=== PATIENT | male | born 1970 | race Caucasian/White ===

== ENCOUNTER 2017-02-16 08:47 | Inpatient (IN) | payer MEDICAID, OTHER ==
[~2017-02-16] VITALS: Ht 172.7 cm; Wt 133.0 kg
[2017-02-16] MEDS ORDERED: LIDOCAINE 2%/EPI MPF (SDV) 20 ML VIAL INJ ONE (10:00)
[2017-02-16] MEDS ORDERED: VANCOMYCIN 1.5 GM in SOD CHLORIDE 0.9% 250 ML IVPB ONE (10:00)
[2017-02-16] MEDS ORDERED: PIPER-TAZO 3.375 GM IV (PMX) 100 ML IVPB ONE (10:00)
[2017-02-16 10:05] LABS: ADD SCAN DIFF NO
[2017-02-16 10:15] LABS: BASOPHIL # 0.1 10^3/ul (0.0-0.1); BASOPHILS % 0.5 % (0.0-2.0); EOSINOPHILS # 0.2 10^3/ul (0.0-0.5); EOSINOPHILS % 1.9 % (0.0-7.0); HEMATOCRIT 49.3 % (42.0-52.0); HEMOGLOBIN 16.5 g/dl (14.0-18.0); LYMPHOCYTES # 1.8 10^3/ul (0.8-2.9); LYMPHOCYTES % 18.8 % (15.0-51.0); MEAN CORPUSCULAR HEMOGLOBIN 29.5 pg (29.0-33.0); MEAN CORPUSCULAR HGB CONC 33.5 g/dl (32.0-37.0); MEAN PLATELET VOLUME 9.6 fl (7.4-10.4); MONOCYTE # 0.7 10^3/ul (0.3-0.9); MONOCYTES % 6.9 % (0.0-11.0); NEUTROPHILS % 71.4 % (39.0-77.0); PLATELET COUNT 374 10^3/UL (140-415); RED CELL DISTRIBUTION WIDTH 11.8 % (11.5-14.5); WHITE BLOOD COUNT 9.8 10^3/ul (4.8-10.8)
--- NOTE | 2017-02-16 10:21 | ERD ---
ER Documentation Chief Complaint Date/Time DATE: 02/16/17 TIME: 10:17 Chief Complaint right below knee pain x 3 days HPI This a 46-year-old male who presents the emergency department today complaining of some right leg redness. States he had a bump that he picked picked at and now there is some drainage. Denies any pain, fevers or chills. States he is unsure if he has any medical problems because " he does not go to the doctor". ROS All systems reviewed and are negative except as per history of present illness. Allergies Allergies: Coded Allergies: No Known Allergy (Unverified , 02/16/17) PMhx/Soc History of Surgery: No Anesthesia Reaction: No Hx Neurological Disorder: No Hx Respiratory Disorders: No Hx Cardiac Disorders: No Hx Psychiatric Problems: No Hx Miscellaneous Medical Probl: No Hx Alcohol Use: No Hx Substance Use: No Hx Tobacco Use: No Smoking Status: Never smoker Physical Exam Vitals Vital Signs Date Time Temp Pulse Resp B/P Pulse Ox O2 Delivery O2 Flow Rate FiO2 02/16/17 11:00 98.3 84 20 137/90 99 Room Air 02/16/17 08:51 98.1 89 20 153/89 99 Physical Exam Const: Morbidly obese, no acute distress Head: Atraumatic Eyes: Normal Conjunctiva ENT: Normal External Ears, Nose and Mouth. Neck: Full range of motion..~ No meningismus. Resp: Clear to auscultation bilaterally Cardio: Regular rate and rhythm, no murmurs Abd: Soft, non tender, non distended. Normal bowel sounds Skin: Right lower leg with evidence of abscess and purulent drainage Ext: Right lower leg with evidence of abscess and purulent drainage and diffuse cellulitis from his tibial tuberosity down to his foot. 2+ pitting edema. Pulses 2+. Distal neurovascularly intact. Neur: Awake and alert Psych: Normal Mood and Affect Result Diagram: 02/16/17 0950 02/16/17 0950 Results 24 hrs Laboratory Tests Test 02/16/17 09:50 White Blood Count 9.810^3/ul Red Blood Count 5.6010^6/ul Hemoglobin 16.5g/dl Hematocrit 49.3% Mean Corpuscular Volume 88.0fl Mean Corpuscular Hemoglobin 29.5pg Mean Corpuscular Hemoglobin Concent 33.5g/dl Red Cell Distribution Width 11.8% Platelet Count 01133^3/UL Mean Platelet Volume 9.6fl Neutrophils % 71.4% Lymphocytes % 18.8% Monocytes % 6.9% Eosinophils % 1.9% Basophils % 0.5% Nucleated Red Blood Cells % 0.0/100WBC Neutrophils # 7.010^3/ul Lymphocytes # 1.810^3/ul Monocytes # 0.710^3/ul Eosinophils # 0.210^3/ul Basophils # 0.110^3/ul Nucleated Red Blood Cells # 0.010^3/ul Sodium Level 138mmol/L Potassium Level 4.5mmol/L Chloride Level 101mmol/L Carbon Dioxide Level 26mmol/L Anion Gap 16 Blood Urea Nitrogen 16mg/dl Creatinine 0.60mg/dl Glucose Level 426mg/dl Calcium Level 10.0mg/dl Total Bilirubin 0.3mg/dl Direct Bilirubin 0.00mg/dl Indirect Bilirubin 0.3mg/dl Aspartate Amino Transf (AST/SGOT) 36IU/L Alanine Aminotransferase (ALT/SGPT) 47IU/L Alkaline Phosphatase 160IU/L Total Protein 8.0g/dl Albumin 4.4g/dl Globulin 3.60g/dl Albumin/Globulin Ratio 1.22 Current Medications Medications (Trade) Dose Ordered Sig/Dorian Route PRN Reason Start Time Stop Time Status Last Admin Dose Admin Vancomycin HCl 1.5 gm/Sodium Chloride 250 ml @ 83.333 mls/ hr ONCE ONCE IVPB 02/16/17 10:00 02/16/17 12:59 DC 02/16/17 10:16 Piperacillin Sod/ Tazobactam Sod (Zosyn 3.375gm/ 100 ml (Pmx)) 100 ml @ 200 mls/hr ONCE ONCE IVPB 02/16/17 10:00 02/16/17 10:29 DC 02/16/17 09:54 Lidocaine/ Epinephrine 20 ml 20 ml ONCE ONCE INJ 02/16/17 10:00 02/16/17 10:01 DC 02/16/17 09:54 Sodium Chloride 1,000 ml @ 1,000 mls/hr Q1H ONCE IV 02/16/17 11:00 02/16/17 11:59 DC 02/16/17 10:47 Sodium Chloride (NS) 1,000 ml @ 1,000 mls/hr Q1H ONCE IV 02/16/17 11:00 02/16/17 11:59 DC 02/16/17 12:08 Insulin Human Lispro (Humalog) 8 unit ONCE STAT SC 02/16/17 10:50 02/16/17 10:53 DC 02/16/17 11:11 Procedures/MDM This a 46-year-old male who presents the emergency department today complaining of some right leg redness and swelling. On physical exam patient has evidence of an abscess that is partially draining and significant amount of cellulitis between his tibial tuberosity and toes. Given patient's physical exam he will require IV antibiotics and admission to the hospital. I did obtain laboratory work as well as perform an incision and drainage locally Laboratory workup shows no elevated white blood cell count. He is not anemic. Platelets are within normal limits. Electro lites are within normal limits. Bicarb is within normal limits. Glucose is 426. Liver functions within normal limits. Patient was given 8 units of subcu insulin given his elevated blood sugar. And blood glucose improved to 289 on Accu-Chek Dr. Ortiz has seen and evaluated the patient and agrees with the decision to admit the patient. He has requested that the patient be given IV vancomycin and Zosyn 2 units of IV fluid. He is also requested that I do an incision and drainage and obtain a wound culture explain the risks and benefits of the procedure to the patient and the patient agreed to proceed. Patient tolerated the procedure well and there were no complications. Abscess Incision and Drainage with irrigation by me: Location: Right anterior tibia Anesthesia: [Local 1% Lidocaine] 5 cc Technique: [Irrigated. Disrupted loculations w/ instrumentation ] Packing: [None] Complications: [Neurovascularly intact post procedure] Patient symptoms at this time is consistent with cellulitis and abscess of right lower extremity and hyperglycemia. He is not in DKA. Patient will be admitted to the hospital. This has been explained to the patient. I have notified the patient of his new new diagnosis of diabetes. Patient understood. Any further orders placed will be placed by Dr. Ortiz or the admitting physician. Departure Diagnosis: Primary Impression: Cellulitis and abscess of lower extremity Additional Impression: Hyperglycemia Condition: HASEEB Hernandez PA-C Feb 16, 2017 10:21
[2017-02-16 10:31] LABS: ALBUMIN 4.4 g/dl (3.3-4.9); ALBUMIN/GLOBULIN RATIO 1.22; BILIRUBIN,INDIRECT 0.3 mg/dl (0-1.1); BILIRUBIN,TOTAL 0.3 mg/dl (0.2-1.3); CREATININE 0.6 mg/dl (0.61-1.24); POTASSIUM 4.5 mmol/L (3.5-5.1)
[2017-02-16] MEDS ORDERED: INSULIN LISPRO 100 UNIT/ML VIAL SC STA (10:50)
[2017-02-16] MEDS ORDERED: SOD CHLORIDE 0.9% 1,000 ML IV ONE ×2 (11:00)
[2017-02-16] MEDS ORDERED: ONDANSETRON 4 MG INJ IV PRN ×2 (14:30→15:30)
[2017-02-16] MEDS ORDERED: ACETAMINOPHEN 325 MG TAB PO PRN ×2 (14:30→15:30)
[2017-02-16 15:00] VITALS: TEMP 98.3
[2017-02-16 15:06] VITALS: BP 144/84; PULSE 85; RESP 18
[2017-02-16] MEDS ORDERED: HYDROCODONE/APAP (5/325) TAB PO PRN (15:30)
[2017-02-16] MEDS ORDERED: VANCOMYCIN IV PER PHARMACY XX SCH (15:30)
[2017-02-16] MEDS ORDERED: hydrALAzine 20 MG INJ IV PRN (15:30)
[2017-02-16] MEDS ORDERED: morphine 2 MG INJ IV PRN (15:30)
[2017-02-16] MEDS ORDERED: NACL 0.9% 3 ML SYG IV SCH (15:30)
[2017-02-16 15:55] VITALS: Ht 172.7 cm; Wt 133.0 kg
[2017-02-16] MEDS ORDERED: GLUCOSE GEL 15 GRAM TUBE BUCCAL PRN (16:00)
[2017-02-16] MEDS ORDERED: GLUCOSE GEL 15 GRAM TUBE PO PRN ×2 (16:00)
[2017-02-16] MEDS ORDERED: GLUCAGON 1 MG INJ IM PRN (16:00)
[2017-02-16] MEDS ORDERED: DEXTROSE 50% 50 ML SYRINGE IV PRN ×2 (16:00)
--- NOTE | 2017-02-16 16:05 | HP ---
DATE OF ADMISSION: 02/16/2017 REASON FOR ADMISSION: Right lower extremity pain and swelling. CONSULTATIONS: Dr. Sebastián Handy, Infectious Disease. HISTORY OF PRESENT ILLNESS: This is a 46-year-old male who denies any past medical history but who is morbidly obese, who came to the emergency department with chief complaint of right lower extremity redness and edema along with pain. The patient verbalized that this started as a pimple-like lesion on 02/10/2017 when he tried to break it and there was some drainage coming out. Since then, this area has been becoming more and more enlarged with redness and edema. The patient tried ptvz-fed-yjftwdx antimicrobial cream and xedm-xcx-yfjywue analgesics with minimal relief. The patient came to the emergency room today with significant right lower extremity edema and erythema. The patient denied any fevers or chills. The patient denied any prior similar episodes. In the emergency room, the patient was noticed to have a random blood glucose of 426. The patient had no leukocytosis. The patient had no febrile illness. The patient had an incision and drainage of the right lower extremity wound by the ER physician photography assistant. The patient was treated with IV vancomycin and IV Zosyn in the emergency room along with IV fluids. PAST MEDICAL HISTORY: Denies. PAST SURGICAL HISTORY: Denies. HOME MEDICATIONS: None. ALLERGIES: NO KNOWN DRUG ALLERGIES. SOCIAL HISTORY: Lives at home with his family. 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 Denies any history of tobacco, alcohol, or illicit drug use. FAMILY HISTORY: Positive for diabetes mellitus. REVIEW OF SYSTEMS: A 12-point review of systems were done, and the review of systems are negative other than what is mentioned in history of present illness. PHYSICAL EXAMINATION: VITAL SIGNS: Temperature 98.3, pulse rate 86, respiratory rate 20, blood pressure 145/108, oxygen saturation 98% on room air. GENERAL: This is a morbidly obese male patient lying in bed in no apparent distress. HEENT: Head normocephalic and atraumatic. Eyes: Anicteric sclerae. Conjunctivae clear. ENT: Nasal septum is midline. Oral mucosa is dry. NECK: Supple. No JVD noticed. RESPIRATORY: Bilaterally clear to auscultation. No adventitious breath sounds heard. No use of accessory muscles of respiration. CARDIAC: Regular rate and rhythm. GASTROINTESTINAL: S1, S2 heard. ABDOMEN: Soft, nontender, and nondistended. Bowel sounds positive in all 4 quadrants. GENITOURINARY: Deferred. EXTREMITIES: No cyanosis, no clubbing. Right dhaliwal area extreme erythema with tenderness to touch. Peripheral pulses palpable. NEUROLOGIC: The patient is awake, alert, and oriented. Cranial nerves are grossly intact. LABORATORY AND DIAGNOSTIC DATA: WBC 9.8, hemoglobin 16.5, hematocrit 49.3, platelet count 375. Sodium 130, potassium 4.5, chloride 101, carbon dioxide 26 , anion gap 16, BUN 16, creatinine 0.6, glucose 426, calcium 10.0, AST 36, ALT 42, alkaline phosphatase 168, total protein 8.0, albumin 4.4. IMPRESSION: This is a 46-year-old male with no significant past medical history who came to the emergency room with right lower extremity edema and erythema who was found to have evidence of right lower extremity cellulitis and underlying abscess along with hyperglycemia who will be admitted here for further treatment and evaluation. ASSESSMENT AND PLAN: 1. Right lower extremity cellulitis with underlying abscess. The patient will be adequately treated using antibiotics. Infectious disease consult will be obtained. Wound care consult will be obtained. Right lower extremity venous Doppler study will be done to evaluate for any underlying venous thromboembolism. Right lower extremity x-ray will be obtained. 2. Hyperglycemia, most probably undiagnosed diabetes mellitus. The patient will be started on sliding scale insulin along with Lantus insulin and premeal insulin. The patient will also be started on carbohydrate controlled diet. Hemoglobin A1c will be obtained to evaluate the blood glucose control over the past few months. 3. Morbid obesity. Fasting lipid panel will be obtained. Weight reduction will be advised. Plan. The patient will be admitted to inpatient medical/surgical floor. The patient will be started on a carbohydrate controlled diet. The patient will be started on DVT prophylaxis and gastrointestinal prophylaxis. The patient will remain a FULL CODE. The patient is not in any DKA. The rest of the patient's management will be based on the clinical course, the results of diagnostic studies, and inputs from consultants. Based on the patient's clinical presentation, he most probably requires at least 2 midnights' stay for further management and evaluation of his clinical presentation. The case and management of this patient was fully discussed with Dr. Connors. SHIVA CONNORS MD, AM/[facility] Conf#: [id number] [facility]#: [id number] MTDD
--- NOTE | 2017-02-16 16:55 | RADRPT ---
PROCEDURE: US right lower extremity veins. CLINICAL INDICATION: Right leg pain and swelling. TECHNIQUE: Multiple longitudinal and transverse images of the right lower extremity veins were obt ained with short scale and color Doppler imaging. The common femoral vein, femoral vein, and poplitea l vein were evaluated. 2D grayscale measurements with compression sonography, pulsed Doppler, color Doppler, and pulsed Doppler with augmentation. COMPARISON: No prior studies are available for comparison. FINDINGS: The right common femoral, femoral and popliteal veins are normally compressible throughout. Color f low demonstrates normal filling of the vessels. Normal waveforms are visualized and there is normal response to augmentation. IMPRESSION: 1. No evidence of deep vein thrombosis involving the right lower extremity. RPTAT: QQ .Suleman Becerra MD, MD Date Time Electronically viewed and signed by .Suleman Becerra MD, on 02/16/2017 16:55 .R/
[2017-02-16] MEDS: INSULIN ASPART [NOVOLOG] 3 ML PEN SC SCH ×3 (18:05→20:24)
[2017-02-16] MEDS: LEVOFLOXACIN 750MG/D5W (PMX) 150 ML IVPB SCH (18:10)
--- NOTE | 2017-02-16 18:36 | CONS ---
DATE OF ADMISSION: 02/16/2017 DATE OF CONSULTATION: 02/16/2017 TYPE OF CONSULTATION: Infectious disease. REASON FOR CONSULTATION: Antibiotic management. HISTORY OF PRESENT ILLNESS: Melquiades Rae is a 46-year-old male with a number of proble ms who has right lower extremity pain and swelling for 3 days. His past problems include: 1. Morbid obesity. 2. Right lower extremity redness and edema along with pain. He noted that the redness started as a pimple-like lesion on ____/, which he tried to break with s ome drainage coming out. Since then, the area became more and more enlarged with redness and edema. He tried duff-yba-pssyfrq antimicrobial cream, but that had no effect. In the emergency room, his white count was 9.8, H and H of 16.5 and 49.3, platelet count 3275,000. His AST is 36, ALT 42, alk scooter phosphatase 168. BUN and creatinine 16/0.6, as noted. Glucose of 426. The patient had an in cision and drainage of right lower extremity wound by the ER physician and was started on vancomycin and Zosyn in the emergency room. PAST MEDICAL HISTORY: Operations as outlined. FAMILY HISTORY: Noncontributory. SOCIAL HISTORY: He lives with his family. 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 He does not smoke, drink, or abuse drugs. ALLERGIES: NONE TO PENICILLIN, SULFA, OR FOODS. MEDICATIONS: Per chart. REVIEW OF SYSTEMS: As per HPI. PHYSICAL EXAMINATION: GENERAL: The patient is a morbidly obese male who is alert, responsive, in no acute distre ss. VITAL SIGNS: Stable. He is afebrile. SKIN: Without generalized rash. HEENT: Within normal limits. NECK: Supple. LYMPH NODES: None palpable. CHEST: Decreased breath sounds at the bases. HEART: Without murmur or gallop. ABDOMEN: Soft, nontender without organosplenomegaly or masses. EXTREMITIES: Without cyanosis or clubbing. He has right lower extremity erythema with tenderness t o touch on the anterior tibial area on the right dhaliwal. The left lower extremity has no erythema. RECTAL AND GENITAL: Deferred. NEUROLOGIC: No focal neurological abnormalities. IMPRESSION AND PLAN: The patient is a 46-year-old male who comes in with right lower extremity cell ulitis. As a wound care consult, patient had incision and drainage in the emergency room. He is on vancomycin and Zosyn. We will await cultures. He had a wound culture done. I guess will get 2 se ts of blood cultures as well. I will dictate my findings to the hospitalist. Dictated By: NELSON GARCÍA MD, JD/[facility] Conf#: [id number] DID#: [id number] CC: EVELIA CONNORS;*[facility]*
[2017-02-16 20:00] VITALS: BP 150/90; RESP 20
--- NOTE | 2017-02-16 20:20 | RADRPT ---
PROCEDURE: XR Right Tibia and Fibula. CLINICAL INDICATION: Right lower leg pain. TECHNIQUE: Two views. Frontal and lateral. COMPARISON: No prior studies are available for comparison. FINDINGS: There is no fracture or dislocation. There is diffuse soft tissue swelling. Articular surfaces are intact. There is no lytic or blastic lesion. There is no radiopaque foreign body. IMPRESSION: 1. Diffuse soft tissue swelling. 2. Otherwise unremarkable images of the right tibia and fibula. RPTAT: QQ .Suleman Becerra MD, MD Date Time Electronically viewed and signed by .Suleman Becerra MD, on 02/16/2017 20:19 .R/
[2017-02-16] MEDS: FAMOTIDINE 20 MG TAB PO SCH (20:26)
[2017-02-16] MEDS: VANCOMYCIN 1.25 GM in SOD CHLORIDE 0.9% 250 ML IVPB SCH (20:52)
[2017-02-16 22:55] LABS: ADD UMIC NO; UR ASCORBIC ACID NEGATIVE (NEGATIVE); UR BILIRUBIN (Dip) NEGATIVE (NEGATIVE); UR BLOOD (Dip) NEGATIVE (NEGATIVE); UR CLARITY CLEAR (CLEAR); UR COLOR YELLOW (YELLOW); UR GLUCOSE (Dip) 3+ mg/dL (NEGATIVE); UR KETONES (Dip) NEGATIVE (NEGATIVE); UR LEUKOCYTE ESTERASE (Dip) NEGATIVE Leu/ul (NEGATIVE); UR NITRITE (Dip) NEGATIVE (NEGATIVE); UR SPECIFIC GRAVITY (Dip) 1.016 (1.003-1.030); UR TOTAL PROTEIN (Dip) NEGATIVE (NEGATIVE); UR UROBILINOGEN (Dip) NEGATIVE (NEGATIVE)
[2017-02-17 00:32] LABS: OPIATES Negative (NEGATIVE)
[2017-02-17 00:33] LABS: BARBITURATES Negative (NEGATIVE); BENZODIAZEPINES Negative (NEGATIVE); CANNABINOIDS Negative (NEGATIVE); COCAINE Negative (NEGATIVE)
[2017-02-17] MEDS: VANCOMYCIN 1.25 GM in SOD CHLORIDE 0.9% 250 ML IVPB SCH ×3 (00:44→18:31)
[2017-02-17 06:33] LABS: ADD SCAN DIFF NO
[2017-02-17 06:34] LABS: BASOPHILS % 0.4 % (0.0-2.0); EOSINOPHILS # 0.2 10^3/ul (0.0-0.5); EOSINOPHILS % 2.1 % (0.0-7.0); HEMATOCRIT 47.4 % (42.0-52.0); HEMOGLOBIN 15.7 g/dl (14.0-18.0); LYMPHOCYTES # 1.8 10^3/ul (0.8-2.9); LYMPHOCYTES % 20.1 % (15.0-51.0); MEAN CORPUSCULAR HEMOGLOBIN 29.1 pg (29.0-33.0); MEAN CORPUSCULAR HGB CONC 33.1 g/dl (32.0-37.0); MEAN CORPUSCULAR VOLUME 87.9 fl (82.0-101.0); MEAN PLATELET VOLUME 9.3 fl (7.4-10.4); MONOCYTE # 0.8 10^3/ul (0.3-0.9); MONOCYTES % 8.8 % (0.0-11.0); NEUTROPHIL # 6.2 10^3/ul (1.6-7.5); NEUTROPHILS % 67.8 % (39.0-77.0); PLATELET COUNT 339 10^3/UL (140-415); RED BLOOD COUNT 5.39 10^6/ul (4.70-6.10); WHITE BLOOD COUNT 9.1 10^3/ul (4.8-10.8)
[2017-02-17 07:07] LABS: ALBUMIN 4.1 g/dl (3.3-4.9); ALBUMIN/GLOBULIN RATIO 1.41; BILIRUBIN,INDIRECT 0.6 mg/dl (0-1.1); BILIRUBIN,TOTAL 0.6 mg/dl (0.2-1.3); CREATININE 0.65 mg/dl (0.61-1.24)
[2017-02-17 07:17] LABS: CHOL/HDL RATIO 3.8 RATIO; MAGNESIUM 1.7 mg/dl (1.7-2.5); PHOSPHORUS 3.4 mg/dl (2.5-4.9)
[2017-02-17 08:13] VITALS: BP 146/90; RESP 18
[2017-02-17] MEDS: INSULIN ASPART [NOVOLOG] 3 ML PEN SC SCH ×5 (08:20→21:00)
[2017-02-17] MEDS: FAMOTIDINE 20 MG TAB PO SCH ×2 (08:26→21:01)
[2017-02-17] MEDS: ENOXAPARIN 40 MG/0.4 ML SYG SC SCH (08:27)
[2017-02-17] MEDS ORDERED: [UNRECOGNIZED DRUG - REMARK] XX ONE (12:00)
[2017-02-17] MEDS: CHOLECALCIFEROL 2,000 UNIT CAP PO SCH (12:14)
--- NOTE | 2017-02-17 12:49 | PN ---
Date/Time of Note Date/Time of Note DATE: 02/17/17 TIME: 12:47 Assessment/Plan VTE Prophylaxis VTE Prophylaxis Intervention: LMWH Lines/Catheters IV [facility]from [facility] [place] [facility] Urinary Cath still in place: No Assessment/Plan Chief Complaint/Hosp Course 1. Right lower extremity cellulitis with underlying abscess. Status post drainage of the abscess by the ER physician. Wound culture growing Staph aureus. X-ray of the right tibia/fibula negative for any bone involvement. Continue antibiotics. Continue local wound care. Elevate the right lower extremity. 2. Type 2 diabetes mellitus. Newly diagnosed. Hemoglobin A1c 13.6. Continue sliding scale insulin along with basal insulin and pre-meal insulin. Will also start the patient on biguanides. 3. Morbid obesity. Weight reduction will be advised. 4. Vitamin D deficiency. Continue vitamin D supplements. 5. Fluids, electrolytes, and nutrition. Carbohydrate controlled diet. 6. DVT prophylaxis with subcutaneous Lovenox. 7. Gastrointestinal prophylaxis. Histamine 2 receptor blockers. 8. Plan. Continue antibiotics as per infectious diseases. Await final cultures. Continue elevation of the left lower extremity. Start biguanides. Case discussed with Dr. Dai. Problems: Subjective 24 Hr Interval Summary Free Text/Dictation Blood sugar still running high. Exam/Review of Systems Vital Signs Vitals Vital Signs Date Time Temp Pulse Resp B/P Pulse Ox O2 Delivery O2 Flow Rate FiO2 02/17/17 08:13 98.1 87 18 146/90 96 02/16/17 15:06 Room Air Intake and Output 02/16/17 02/16/17 02/17/17 15:00 23:00 07:00 Intake Total 390 ml 1100 ml Balance 390 ml 1100 ml Exam GENERAL: This is a morbidly obese male patient lying in bed in no apparent distress. HEENT: Head normocephalic and atraumatic. Eyes: Anicteric sclerae. Conjunctivae clear. ENT: Nasal septum is midline. Oral mucosa is dry. NECK: Supple. No JVD noticed. RESPIRATORY: Bilaterally clear to auscultation. No adventitious breath sounds heard. No use of accessory muscles of respiration. CARDIAC: Regular rate and rhythm. GASTROINTESTINAL: S1, S2 heard. ABDOMEN: Soft, nontender, and nondistended. Bowel sounds positive in all 4 quadrants. GENITOURINARY: Deferred. EXTREMITIES: No cyanosis, no clubbing. Right dhaliwal area extreme erythema with tenderness to touch. Left lower extremity has no erythema. Peripheral pulses palpable. NEUROLOGIC: The patient is awake, alert, and oriented. Cranial nerves are grossly intact. Results Result Diagram: 02/17/17 0558 02/17/17 0558 Results 24 hrs Laboratory Tests Test 02/16/17 15:45 02/16/17 18:21 02/16/17 20:19 02/16/17 21:15 Hemoglobin A1c 13.6 H Vitamin D 1,25-Dihydroxy 18.0 L Thyroid Stimulating Hormone (TSH) 1.330 Free Thyroxine 1.21 Bedside Glucose 248 H 256 H Urine Color YELLOW Urine Clarity CLEAR Urine pH 6.0 Urine Specific [place] 1.016 Urine Ketones NEGATIVE Urine Nitrite NEGATIVE Urine Bilirubin NEGATIVE Urine Urobilinogen NEGATIVE Urine Leukocyte Esterase NEGATIVE Urine Hemoglobin NEGATIVE Urine Glucose 3+ H Urine Total Protein NEGATIVE Urine Opiates Screen Negative Urine Barbiturates Negative Urine Amphetamines Screen Negative Urine Benzodiazepines Screen Negative Urine Cocaine Screen Negative Urine Cannabinoids Negative Test 02/17/17 02:07 02/17/17 05:58 02/17/17 08:15 02/17/17 12:08 Bedside Glucose 205 239 H 248 H White Blood Count 9.1 Red Blood Count 5.39 Hemoglobin 15.7 Hematocrit 47.4 Mean Corpuscular Volume 87.9 Mean Corpuscular Hemoglobin 29.1 Mean Corpuscular Hemoglobin Concent 33.1 Red Cell Distribution Width 12.0 Platelet Count 339 Mean Platelet Volume 9.3 Neutrophils % 67.8 Lymphocytes % 20.1 Monocytes % 8.8 Eosinophils % 2.1 Basophils % 0.4 Nucleated Red Blood Cells % 0.0 Neutrophils # 6.2 Lymphocytes # 1.8 Monocytes # 0.8 Eosinophils # 0.2 Basophils # 0.0 Nucleated Red Blood Cells # 0.0 Sodium Level 135 Potassium Level 4.0 Chloride Level 98 Carbon Dioxide Level 29 Anion Gap 12 Blood Urea Nitrogen 11 Creatinine 0.65 Glucose Level 263 #H Calcium Level 9.0 Phosphorus Level 3.4 Magnesium Level 1.7 Total Bilirubin 0.6 Direct Bilirubin 0.00 Indirect Bilirubin 0.6 Aspartate Amino Transf (AST/SGOT) 48 H Alanine Aminotransferase (ALT/SGPT) 51 Alkaline Phosphatase 129 H Total Protein 7.0 # Albumin 4.1 Globulin 2.90 Albumin/Globulin Ratio 1.41 Triglycerides Level 138 Cholesterol Level 141 LDL Cholesterol, Calculated 76 HDL Cholesterol 37 Cholesterol/HDL Ratio 3.8 Medications Medications Current Medications Ondansetron HCl (Zofran Inj) 4 mg Q6H PRN IV NAUSEA AND/OR VOMITING; Start at 15:30 Acetaminophen (Tylenol Tab) 650 mg Q6H PRN PO PAIN LEVEL 1-3 OR FEVER; Start at 15:30 Acetaminophen/ Hydrocodone Bitart ([place] (5/325)) 1 tab Q6H PRN PO MODERATE PAIN LEVEL 4-6; Start 02/16/17 at 15:30 Morphine Sulfate (morphine) 2 mg Q4H PRN IV SEVERE PAIN LEVEL 7-10; Start 02/16 at 15:30 Famotidine (Pepcid) 20 mg Q12 PO Last administered on 02/17/17 08:26; Admin Dose 20 MG; Start 02/16/17 at 21:00 Enoxaparin Sodium (Lovenox) 40 mg DAILY SC Last administered on 02/17/17 08:27 ; Admin Dose 40 MG; Start 02/17/17 at 09:00 Hydralazine HCl 10 mg 10 mg Q6H PRN IV SBP>160; Start 02/16/17 at 15:30 Levofloxacin/ Dextrose (Levaquin 750 Mg/ D5W 150 ml (Pmx)) 150 ml @ 100 mls/hr Q24H IVPB Last administered on 02/16/17 18:10; Admin Dose 100 MLS/HR; Start at 16:15 Miscellaneous Information 1 ea NOTE XX ; Start 02/16/17 at 16:00 Glucose (Glutose) 15 gm Q15M PRN PO DECREASED GLUCOSE; Start 02/16/17 at 16:00 Glucose (Glutose) 22.5 gm Q15M PRN PO DECREASED GLUCOSE; Start 02/16/17 at 16: 00 Dextrose (D50w Syringe) 25 ml Q15M PRN IV DECREASED GLUCOSE; Start 02/16/17 at 16:00 Dextrose (D50w Syringe) 50 ml Q15M PRN IV DECREASED GLUCOSE; Start 02/16/17 at 16:00 Glucagon (Glucagen) 1 mg Q15M PRN IM DECREASED GLUCOSE; Start 02/16/17 at 16:00 Glucose 15 gm 15 gm Q15M PRN BUCCAL DECREASED GLUCOSE; Start 02/16/17 at 16:00 Vancomycin HCl/ Sodium Chloride (Vancocin/NS) 250 ml @ 83.333 mls/ hr Q8H IVPB Last administered on 02/17/17 10:13; Admin Dose 83.333 MLS/HR; Start at 17:00 Cholecalciferol (Vitamin D) 2,000 unit DAILY PO Last administered on 02/17/17 12:14; Admin Dose 2,000 UNIT; Start 02/17/17 at 09:00 Miscellaneous Information (*Rx Drug Level Order Reminder*) 1 ONCE ONCE XX ; Start 02/17/17 at 16:00; Stop 02/17/17 at 16:01 SHIVA CHASE NP Feb 17, 2017 12:48
[2017-02-17] MEDS: LISINOPRIL 5 MG TAB PO SCH (16:27)
[2017-02-17] MEDS: LEVOFLOXACIN 750MG/D5W (PMX) 150 ML IVPB SCH (16:28)
[2017-02-17] MEDS ORDERED: AMIO200T2 PO (17:06)
[2017-02-17] MEDS ORDERED: ASPI81TA3 PO (17:20)
[2017-02-17] MEDS ORDERED: NOVO3I SC ×3 (17:20)
[2017-02-17] MEDS ORDERED: LACT1CAP43 PO (17:20)
[2017-02-17] MEDS ORDERED: HYDR-3671 PO (17:20)
[2017-02-17] MEDS ORDERED: ASC500 PO (17:20)
[2017-02-17] MEDS ORDERED: METO25TA4 PO (17:20)
[2017-02-17] MEDS ORDERED: PANT40TA4 PO (17:20)
[2017-02-17] MEDS ORDERED: LANT3I SC (17:20)
[2017-02-17] MEDS ORDERED: SODI100010 MC (17:20)
[2017-02-17] MEDS: metFORMIN 500 MG TAB PO SCH (17:41)
--- NOTE | 2017-02-17 19:44 | PN ---
DATE: 02/17/2017 SUBJECTIVE: No acute changes. The patient is alert, looks comfortable, complaining of right lower extremity pain. No fevers. WBC 9.1, no shift, no bands. BUN 11, creatinine 0.65. MICROBIOLOGY: Drainage from right lower extremity growing Staphylococcus aureus preliminary. DIAGNOSTICS: Ultrasound revealed no evidence of DVT. ANTIMICROBIALS: The patient is on: 1. Vancomycin. 2. Levaquin. PHYSICAL EXAMINATION: GENERAL: Obese, well-developed middle-aged man who is alert, in no distress. HEENT: Head atraumatic, normocephalic. Sclerae anicteric. NECK: Supple. CHEST: Rise symmetrical. Breath sounds clear. HEART: S1, S2. ABDOMEN: Soft. Bowel tones present. EXTREMITIES: Right lower extremity edema and erythema. ASSESSMENT: 1. Systemic inflammatory response syndrome with right lower extremity cellulitis. 2. Obesity. 3. Diabetes. PLAN: The patient remains stable. We will continue him on current regimen, continue right lower ex tremity elevation and await for final cultures. Dictated By: PAULINO SALEEM PRECISION AGRICULTURE TECHNICIAN for [place]/[facility] Conf#: [id number] DID#: [id number]
[2017-02-17] MEDS ORDERED: INSULIN GLARGINE [LANtus] 3 ML PEN SC SCH (20:00)
[2017-02-17 20:39] VITALS: BP 140/86; RESP 21
[2017-02-18] MEDS: VANCOMYCIN 1.25 GM in SOD CHLORIDE 0.9% 250 ML IVPB SCH ×3 (01:16→20:39)
[2017-02-18 05:49] LABS: ADD SCAN DIFF NO
[2017-02-18 05:54] LABS: BASOPHIL # 0.1 10^3/ul (0.0-0.1); BASOPHILS % 0.6 % (0.0-2.0); EOSINOPHILS # 0.3 10^3/ul (0.0-0.5); EOSINOPHILS % 2.8 % (0.0-7.0); HEMOGLOBIN 16.1 g/dl (14.0-18.0); LYMPHOCYTES # 2.3 10^3/ul (0.8-2.9); LYMPHOCYTES % 21.8 % (15.0-51.0); MEAN CORPUSCULAR HEMOGLOBIN 29.2 pg (29.0-33.0); MEAN CORPUSCULAR HGB CONC 32.9 g/dl (32.0-37.0); MEAN CORPUSCULAR VOLUME 88.9 fl (82.0-101.0); MEAN PLATELET VOLUME 9.3 fl (7.4-10.4); MONOCYTE # 1.1 10^3/ul (0.3-0.9); NEUTROPHIL # 6.8 10^3/ul (1.6-7.5); NEUTROPHILS % 63.8 % (39.0-77.0); PLATELET COUNT 338 10^3/UL (140-415); RED BLOOD COUNT 5.51 10^6/ul (4.70-6.10); RED CELL DISTRIBUTION WIDTH 12.1 % (11.5-14.5); WHITE BLOOD COUNT 10.6 10^3/ul (4.8-10.8)
[2017-02-18 07:03] LABS: MAGNESIUM 1.8 mg/dl (1.7-2.5); PHOSPHORUS 4.2 mg/dl (2.5-4.9)
--- NOTE | 2017-02-18 07:20 | PN ---
Date/Time of Note Date/Time of Note DATE: 02/18/17 TIME: 07:19 Assessment/Plan VTE Prophylaxis VTE Prophylaxis Intervention: LMWH Lines/Catheters IV Catheter Type (from [facility]): [facility] Urinary Cath still in place: No Assessment/Plan Chief Complaint/Hosp Course 1. Right lower extremity cellulitis with underlying abscess. Status post drainage of the abscess by the ER physician. Wound culture growing Staph aureus. X-ray of the right tibia/fibula negative for any bone involvement. Continue antibiotics. Continue local wound care. Elevate the right lower extremity. 2. Type 2 diabetes mellitus. Newly diagnosed. Hemoglobin A1c 13.6. Continue sliding scale insulin along with basal insulin and pre-meal insulin. Continue the patient on biguanides. 3. Morbid obesity. Weight reduction will be advised. 4. Vitamin D deficiency. Continue vitamin D supplements. 5. Fluids, electrolytes, and nutrition. Carbohydrate controlled diet. 6. DVT prophylaxis with subcutaneous Lovenox. 7. Gastrointestinal prophylaxis. Histamine 2 receptor blockers. 8. Plan. Continue antibiotics as per infectious diseases. Await final cultures. Continue elevation of the left lower extremity. Case discussed with Dr. Dai. Problems: Subjective 24 Hr Interval Summary Free Text/Dictation Blood sugars better controlled. Exam/Review of Systems Vital Signs Vitals Vital Signs Date Time Temp Pulse Resp B/P Pulse Ox O2 Delivery O2 Flow Rate FiO2 02/17/17 20:39 97.8 85 21 140/86 96 02/16/17 15:06 Room Air Intake and Output 02/17/17 02/17/17 02/18/17 15:00 23:00 07:00 Intake Total 2100 ml 650 ml Balance 2100 ml 650 ml Exam GENERAL: This is a morbidly obese male patient lying in bed in no apparent distress. HEENT: Head normocephalic and atraumatic. Eyes: Anicteric sclerae. Conjunctivae clear. ENT: Nasal septum is midline. Oral mucosa is dry. NECK: Supple. No JVD noticed. RESPIRATORY: Bilaterally clear to auscultation. No adventitious breath sounds heard. No use of accessory muscles of respiration. CARDIAC: Regular rate and rhythm. GASTROINTESTINAL: S1, S2 heard. ABDOMEN: Soft, nontender, and nondistended. Bowel sounds positive in all 4 quadrants. GENITOURINARY: Deferred. EXTREMITIES: No cyanosis, no clubbing. Right dhaliwal area extreme erythema with tenderness to touch. Left lower extremity has no erythema. Peripheral pulses palpable. NEUROLOGIC: The patient is awake, alert, and oriented. Cranial nerves are grossly intact. Results Result Diagram: 02/18/17 0435 02/17/17 0558 Results 24 hrs Laboratory Tests Test 02/17/17 08:15 02/17/17 12:08 02/17/17 15:55 02/17/17 17:30 Bedside Glucose 239 H 248 H 245 H Vancomycin Level Trough 15.2 Test 02/17/17 20:57 02/18/17 01:17 02/18/17 04:35 Bedside Glucose 196 165 White Blood Count 10.6 Red Blood Count 5.51 Hemoglobin 16.1 Hematocrit 49.0 Mean Corpuscular Volume 88.9 Mean Corpuscular Hemoglobin 29.2 Mean Corpuscular Hemoglobin Concent 32.9 Red Cell Distribution Width 12.1 Platelet Count 338 Mean Platelet Volume 9.3 Neutrophils % 63.8 Lymphocytes % 21.8 Monocytes % 10.0 Eosinophils % 2.8 Basophils % 0.6 Nucleated Red Blood Cells % 0.0 Neutrophils # 6.8 Lymphocytes # 2.3 Monocytes # 1.1 H Eosinophils # 0.3 Basophils # 0.1 Nucleated Red Blood Cells # 0.0 Phosphorus Level 4.2 Magnesium Level 1.8 Medications Medications Current Medications Ondansetron HCl (Zofran Inj) 4 mg Q6H PRN IV NAUSEA AND/OR VOMITING; Start at 15:30 Acetaminophen (Tylenol Tab) 650 mg Q6H PRN PO PAIN LEVEL 1-3 OR FEVER Last administered on 02/17/17 22:18; Admin Dose 650 MG; Start 02/16/17 at 15:30 Acetaminophen/ Hydrocodone Bitart ([place] (5/325)) 1 tab Q6H PRN PO MODERATE PAIN LEVEL 4-6; Start 02/16/17 at 15:30 Morphine Sulfate (morphine) 2 mg Q4H PRN IV SEVERE PAIN LEVEL 7-10; Start 02/16 at 15:30 Famotidine (Pepcid) 20 mg Q12 PO Last administered on 02/17/17 21:01; Admin Dose 20 MG; Start 02/16/17 at 21:00 Enoxaparin Sodium (Lovenox) 40 mg DAILY SC Last administered on 02/17/17 08:27 ; Admin Dose 40 MG; Start 02/17/17 at 09:00 Hydralazine HCl 10 mg 10 mg Q6H PRN IV SBP>160; Start 02/16/17 at 15:30 Levofloxacin/ Dextrose (Levaquin 750 Mg/ D5W 150 ml (Pmx)) 150 ml @ 100 mls/hr Q24H IVPB Last administered on 02/17/17 16:28; Admin Dose 100 MLS/HR; Start at 16:15 Miscellaneous Information 1 ea NOTE XX ; Start 02/16/17 at 16:00 Glucose (Glutose) 15 gm Q15M PRN PO DECREASED GLUCOSE; Start 02/16/17 at 16:00 Glucose (Glutose) 22.5 gm Q15M PRN PO DECREASED GLUCOSE; Start 02/16/17 at 16: 00 Dextrose (D50w Syringe) 25 ml Q15M PRN IV DECREASED GLUCOSE; Start 02/16/17 at 16:00 Dextrose (D50w Syringe) 50 ml Q15M PRN IV DECREASED GLUCOSE; Start 02/16/17 at 16:00 Glucagon (Glucagen) 1 mg Q15M PRN IM DECREASED GLUCOSE; Start 02/16/17 at 16:00 Glucose 15 gm 15 gm Q15M PRN BUCCAL DECREASED GLUCOSE; Start 02/16/17 at 16:00 Vancomycin HCl/ Sodium Chloride (Vancocin/NS) 250 ml @ 83.333 mls/ hr Q8H IVPB Last administered on 02/18/17 01:16; Admin Dose 83.333 MLS/HR; Start at 17:00 Cholecalciferol (Vitamin D) 2,000 unit DAILY PO Last administered on 02/17/17 12:14; Admin Dose 2,000 UNIT; Start 02/17/17 at 09:00 Insulin Glargine (Lantus) 27 unit DAILY@20 SC Last administered on 02/17/17 20 :59; Admin Dose 27 UNIT; Start 02/17/17 at 20:00 Lisinopril (Zestril) 5 mg DAILY PO Last administered on 02/17/17 16:27; Admin Dose 5 MG; Start 02/17/17 at 13:00 SHIVA CHASE NP Feb 18, 2017 07:20
[2017-02-18 07:21] LABS: ALBUMIN/GLOBULIN RATIO 1.25; BILIRUBIN,INDIRECT 0.5 mg/dl (0-1.1); BILIRUBIN,TOTAL 0.5 mg/dl (0.2-1.3); CALCIUM 9.3 mg/dl (8.4-10.2); CREATININE 0.75 mg/dl (0.61-1.24); POTASSIUM 3.8 mmol/L (3.5-5.1); TOTAL PROTEIN 7.2 g/dl (6.1-8.1)
[2017-02-18 07:41] VITALS: BP 126/80; RESP 20
[2017-02-18] MEDS: FAMOTIDINE 20 MG TAB PO SCH ×2 (08:38→20:39)
[2017-02-18] MEDS: metFORMIN 500 MG TAB PO SCH ×2 (08:38→17:17)
[2017-02-18] MEDS: CHOLECALCIFEROL 2,000 UNIT CAP PO SCH (08:38)
[2017-02-18] MEDS: LISINOPRIL 5 MG TAB PO SCH (08:39)
[2017-02-18] MEDS: INSULIN ASPART [NOVOLOG] 3 ML PEN SC SCH ×7 (08:45→20:42)
[2017-02-18] MEDS: ENOXAPARIN 40 MG/0.4 ML SYG SC SCH (08:46)
[2017-02-18] MEDS: LEVOFLOXACIN 750MG/D5W (PMX) 150 ML IVPB SCH (17:14)
[2017-02-18 19:58] VITALS: BP 136/79; RESP 21
[2017-02-18] MEDS: INSULIN GLARGINE [LANtus] 3 ML PEN SC SCH (20:42)
--- NOTE | 2017-02-18 21:13 | CONS ---
Date/Time of Note Date/Time of Note DATE: 02/18/17 TIME: 21:11 Assessment/Plan Assessment/Plan Chief Complaint/Hosp Course SUBJECTIVE: No acute changes. The patient is alert, looks comfortable. No fevers. MICROBIOLOGY: Drainage from right lower extremity growing MRSA. DIAGNOSTICS: Ultrasound revealed no evidence of DVT. ANTIMICROBIALS: The patient is on: 1. Vancomycin. 2. Levaquin. PHYSICAL EXAMINATION: GENERAL: Obese, well-developed middle-aged man who is alert, in no distress. HEENT: Head atraumatic, normocephalic. Sclerae anicteric. NECK: Supple. CHEST: Rise symmetrical. Breath sounds clear. HEART: S1, S2. ABDOMEN: Soft. Bowel tones present. EXTREMITIES: Right lower extremity edema and erythema. ASSESSMENT: 1. Systemic inflammatory response syndrome 2 to right lower extremity cellulitis. 2. Obesity. 3. Diabetes. PLAN: The patient remains stable. We will add Rifampin, dc Levaquin, continue Vanco, continue right lower extremity elevation. DW pt Problems: Consultation Date/Type/Reason Admit Date/Time Feb 16, 2017 at 14:20 Initial Consult Date Type of Consultation: ID Exam/Review of Systems Vital Signs Vitals Vital Signs Date Time Temp Pulse Resp B/P Pulse Ox O2 Delivery O2 Flow Rate FiO2 02/18/17 19:58 97.7 91 21 136/79 95 02/16/17 15:06 Room Air Intake and Output 02/17/17 02/17/17 02/18/17 15:00 23:00 07:00 Intake Total 2100 ml 650 ml Balance 2100 ml 650 ml Results Result Diagram: 02/18/17 0435 02/18/17 0435 Results 24 hrs Laboratory Tests Test 02/18/17 01:17 02/18/17 04:35 02/18/17 08:36 02/18/17 12:45 Bedside Glucose 165 211 255 H White Blood Count 10.6 Red Blood Count 5.51 Hemoglobin 16.1 Hematocrit 49.0 Mean Corpuscular Volume 88.9 Mean Corpuscular Hemoglobin 29.2 Mean Corpuscular Hemoglobin Concent 32.9 Red Cell Distribution Width 12.1 Platelet Count 338 Mean Platelet Volume 9.3 Neutrophils % 63.8 Lymphocytes % 21.8 Monocytes % 10.0 Eosinophils % 2.8 Basophils % 0.6 Nucleated Red Blood Cells % 0.0 Neutrophils # 6.8 Lymphocytes # 2.3 Monocytes # 1.1 H Eosinophils # 0.3 Basophils # 0.1 Nucleated Red Blood Cells # 0.0 Sodium Level 139 Potassium Level 3.8 Chloride Level 101 Carbon Dioxide Level 27 Anion Gap 15 Blood Urea Nitrogen 17 Creatinine 0.75 Glucose Level 206 Calcium Level 9.3 Phosphorus Level 4.2 Magnesium Level 1.8 Total Bilirubin 0.5 Direct Bilirubin 0.00 Indirect Bilirubin 0.5 Aspartate Amino Transf (AST/SGOT) 48 H Alanine Aminotransferase (ALT/SGPT) 55 Alkaline Phosphatase 129 H Total Protein 7.2 Albumin 4.0 Globulin 3.20 Albumin/Globulin Ratio 1.25 Test 02/18/17 17:17 02/18/17 20:37 Bedside Glucose 195 169 Medications Medications Current Medications Ondansetron HCl (Zofran Inj) 4 mg Q6H PRN IV NAUSEA AND/OR VOMITING; Start at 15:30 Acetaminophen (Tylenol Tab) 650 mg Q6H PRN PO PAIN LEVEL 1-3 OR FEVER Last administered on 02/17/17 22:18; Admin Dose 650 MG; Start 02/16/17 at 15:30 Acetaminophen/ Hydrocodone Bitart ([place] (5/325)) 1 tab Q6H PRN PO MODERATE PAIN LEVEL 4-6; Start 02/16/17 at 15:30 Morphine Sulfate (morphine) 2 mg Q4H PRN IV SEVERE PAIN LEVEL 7-10; Start 02/16 at 15:30 Famotidine (Pepcid) 20 mg Q12 PO Last administered on 02/18/17 20:39; Admin Dose 20 MG; Start 02/16/17 at 21:00 Enoxaparin Sodium (Lovenox) 40 mg DAILY SC Last administered on 02/18/17 08:46 ; Admin Dose 40 MG; Start 02/17/17 at 09:00 Hydralazine HCl 10 mg 10 mg Q6H PRN IV SBP>160; Start 02/16/17 at 15:30 Levofloxacin/ Dextrose (Levaquin 750 Mg/ D5W 150 ml (Pmx)) 150 ml @ 100 mls/hr Q24H IVPB Last administered on 02/18/17 17:14; Admin Dose 100 MLS/HR; Start at 16:15 Miscellaneous Information 1 ea NOTE XX ; Start 02/16/17 at 16:00 Glucose (Glutose) 15 gm Q15M PRN PO DECREASED GLUCOSE; Start 02/16/17 at 16:00 Glucose (Glutose) 22.5 gm Q15M PRN PO DECREASED GLUCOSE; Start 02/16/17 at 16: 00 Dextrose (D50w Syringe) 25 ml Q15M PRN IV DECREASED GLUCOSE; Start 02/16/17 at 16:00 Dextrose (D50w Syringe) 50 ml Q15M PRN IV DECREASED GLUCOSE; Start 02/16/17 at 16:00 Glucagon (Glucagen) 1 mg Q15M PRN IM DECREASED GLUCOSE; Start 02/16/17 at 16:00 Glucose 15 gm 15 gm Q15M PRN BUCCAL DECREASED GLUCOSE; Start 02/16/17 at 16:00 Vancomycin HCl/ Sodium Chloride (Vancocin/NS) 250 ml @ 83.333 mls/ hr Q8H IVPB Last administered on 02/18/17 20:39; Admin Dose 83.333 MLS/HR; Start at 17:00 Cholecalciferol (Vitamin D) 2,000 unit DAILY PO Last administered on 02/18/17 08:38; Admin Dose 2,000 UNIT; Start 02/17/17 at 09:00 Lisinopril (Zestril) 5 mg DAILY PO Last administered on 02/18/17 08:39; Admin Dose 5 MG; Start 02/17/17 at 13:00 Insulin Glargine (Lantus) 30 unit DAILY@20 SC Last administered on 02/18/17 20 :42; Admin Dose 30 UNIT; Start 02/18/17 at 20:00 PAULINO SALEEM NP Feb 18, 2017 21:13
[2017-02-19] MEDS: VANCOMYCIN 1.25 GM in SOD CHLORIDE 0.9% 250 ML IVPB SCH ×4 (01:00→22:46)
[2017-02-19 07:00] LABS: CREATININE 0.75 mg/dl (0.61-1.24)
[2017-02-19] MEDS: metFORMIN 500 MG TAB PO SCH (07:59)
[2017-02-19] MEDS: INSULIN ASPART [NOVOLOG] 3 ML PEN SC SCH ×7 (08:04→20:29)
[2017-02-19 08:07] VITALS: BP 105/66; RESP 20
[2017-02-19] MEDS: FAMOTIDINE 20 MG TAB PO SCH ×2 (09:14→20:30)
[2017-02-19] MEDS: RIFAMPIN 300 MG CAP PO SCH (09:14)
[2017-02-19] MEDS: CHOLECALCIFEROL 2,000 UNIT CAP PO SCH (09:14)
[2017-02-19] MEDS: LISINOPRIL 5 MG TAB PO SCH (09:14)
[2017-02-19] MEDS: ENOXAPARIN 40 MG/0.4 ML SYG SC SCH (09:17)
--- NOTE | 2017-02-19 10:08 | PN ---
Date/Time of Note Date/Time of Note DATE: 02/19/17 TIME: 10:07 Assessment/Plan VTE Prophylaxis VTE Prophylaxis Intervention: LMWH Lines/Catheters [facility] Sal[facility] Urinary Cath still in place: No Assessment/Plan Chief Complaint/Hosp Course 1. Right lower extremity cellulitis with underlying abscess. Status post drainage of the abscess by the ER physician. Wound culture growing Staph aureus. X-ray of the right tibia/fibula negative for any bone involvement. Continue antibiotics. Continue local wound care. Elevate the right lower extremity. 2. Type 2 diabetes mellitus. Newly diagnosed. Hemoglobin A1c 13.6. Continue sliding scale insulin along with basal insulin and pre-meal insulin. Continue the patient on biguanides. 3. Morbid obesity. Weight reduction will be advised. 4. Vitamin D deficiency. Continue vitamin D supplements. 5. Fluids, electrolytes, and nutrition. Carbohydrate controlled diet. 6. DVT prophylaxis with subcutaneous Lovenox. 7. Gastrointestinal prophylaxis. Histamine 2 receptor blockers. 8. Plan. Continue antibiotics as per infectious diseases. Await final cultures. Continue elevation of the left lower extremity. Will increase the dose of metformin. Status post evaluation by wound care. Case discussed with Dr. Dai. Problems: Subjective 24 Hr Interval Summary Free Text/Dictation Patient remains afebrile. Blood sugars fairly well controlled. Exam/Review of Systems Vital Signs Vitals Vital Signs Date Time Temp Pulse Resp B/P Pulse Ox O2 Delivery O2 Flow Rate FiO2 02/19/17 08:07 97.9 86 20 105/66 95 02/16/17 15:06 Room Air Intake and Output 02/18/17 02/18/17 02/19/17 15:00 23:00 07:00 Intake Total 250 ml 1310 ml 730 ml Output Total 350 ml Balance 250 ml 960 ml 730 ml Exam GENERAL: This is a morbidly obese male patient lying in bed in no apparent distress. HEENT: Head normocephalic and atraumatic. Eyes: Anicteric sclerae. Conjunctivae clear. ENT: Nasal septum is midline. Oral mucosa is dry. NECK: Supple. No JVD noticed. RESPIRATORY: Bilaterally clear to auscultation. No adventitious breath sounds heard. No use of accessory muscles of respiration. CARDIAC: Regular rate and rhythm. S1, S2 heard. ABDOMEN: Soft, nontender, and nondistended. Bowel sounds positive in all 4 quadrants. GENITOURINARY: Deferred. EXTREMITIES: No cyanosis, no clubbing. Right dhaliwal area erythema improving. Left lower extremity has no erythema. Peripheral pulses palpable. Left dhaliwal dressing NEUROLOGIC: The patient is awake, alert, and oriented. Cranial nerves are grossly intact. Results Result Diagram: 02/18/17 0435 02/19/17 0427 Results 24 hrs Laboratory Tests Test 02/18/17 12:45 02/18/17 17:17 02/18/17 20:37 02/19/17 04:27 Bedside Glucose 255 H 195 169 Blood Urea Nitrogen 21 H Creatinine 0.75 Test 02/19/17 08:01 Bedside Glucose 184 Medications Medications Current Medications Ondansetron HCl (Zofran Inj) 4 mg Q6H PRN IV NAUSEA AND/OR VOMITING; Start at 15:30 Acetaminophen (Tylenol Tab) 650 mg Q6H PRN PO PAIN LEVEL 1-3 OR FEVER Last administered on 02/17/17 22:18; Admin Dose 650 MG; Start 02/16/17 at 15:30 Acetaminophen/ Hydrocodone Bitart ([place] (5/325)) 1 tab Q6H PRN PO MODERATE PAIN LEVEL 4-6; Start 02/16/17 at 15:30 Morphine Sulfate (morphine) 2 mg Q4H PRN IV SEVERE PAIN LEVEL 7-10; Start 02/16 at 15:30 Famotidine (Pepcid) 20 mg Q12 PO Last administered on 02/19/17 09:14; Admin Dose 20 MG; Start 02/16/17 at 21:00 Enoxaparin Sodium (Lovenox) 40 mg DAILY SC Last administered on 02/19/17 09:17 ; Admin Dose 40 MG; Start 02/17/17 at 09:00 Hydralazine HCl (Apresoline) 10 mg Q6H PRN IV SBP>160; Start 02/16/17 at 15:30 Miscellaneous Information 1 ea NOTE XX ; Start 02/16/17 at 16:00 Glucose (Glutose) 15 gm Q15M PRN PO DECREASED GLUCOSE; Start 02/16/17 at 16:00 Glucose (Glutose) 22.5 gm Q15M PRN PO DECREASED GLUCOSE; Start 02/16/17 at 16: 00 Dextrose (D50w Syringe) 25 ml Q15M PRN IV DECREASED GLUCOSE; Start 02/16/17 at 16:00 Dextrose (D50w Syringe) 50 ml Q15M PRN IV DECREASED GLUCOSE; Start 02/16/17 at 16:00 Glucagon (Glucagen) 1 mg Q15M PRN IM DECREASED GLUCOSE; Start 02/16/17 at 16:00 Glucose 15 gm 15 gm Q15M PRN BUCCAL DECREASED GLUCOSE; Start 02/16/17 at 16:00 Vancomycin HCl/ Sodium Chloride (Vancocin/NS) 250 ml @ 83.333 mls/ hr Q8H IVPB Last administered on 02/19/17 05:56; Admin Dose 83.333 MLS/HR; Start at 17:00 Cholecalciferol (Vitamin D) 2,000 unit DAILY PO Last administered on 02/19/17 09:14; Admin Dose 2,000 UNIT; Start 02/17/17 at 09:00 Lisinopril (Zestril) 5 mg DAILY PO Last administered on 02/19/17 09:14; Admin Dose 5 MG; Start 02/17/17 at 13:00 Insulin Glargine (Lantus) 30 unit DAILY@20 SC Last administered on 02/18/17 20 :42; Admin Dose 30 UNIT; Start 02/18/17 at 20:00 Rifampin (Rifampin) 600 mg DAILY PO Last administered on 02/19/17 09:14; Admin Dose 600 MG; Start 02/19/17 at 09:00 Silver Sulfadiazine (Thermazene 1% 25 Gm) 1 applic DAILY TOP ; Start 02/19/17 at 11:00 SHIVA CHASE NP Feb 19, 2017 10:08
[2017-02-19] MEDS: SILVER SULFADIAZINE 1% 25 GM CR TOP SCH (12:03)
--- NOTE | 2017-02-19 12:59 | CONS ---
Date/Time of Note Date/Time of Note DATE: 02/19/17 TIME: 12:57 Assessment/Plan Assessment/Plan Chief Complaint/Hosp Course SUBJECTIVE: No acute changes. The patient is alert, looks comfortable. No fevers. MICROBIOLOGY: Drainage from right lower extremity growing MRSA. DIAGNOSTICS: Ultrasound revealed no evidence of DVT. ANTIMICROBIALS: The patient is on: 1. Vancomycin. 2. Rifampin. PHYSICAL EXAMINATION: GENERAL: Obese, well-developed middle-aged man who is alert, in no distress. HEENT: Head atraumatic, normocephalic. Sclerae anicteric. NECK: Supple. CHEST: Rise symmetrical. Breath sounds clear. HEART: S1, S2. ABDOMEN: Soft. Bowel tones present. EXTREMITIES: Right lower extremity edema and erythema. ASSESSMENT: 1. Systemic inflammatory response syndrome 2 to right lower extremity cellulitis. 2. Obesity. 3. Diabetes. PLAN: The patient remains stable. Right lower extremity looks better, swelling decreased. Continue on current antibiotics while in-house. Anticipate discharge on oral Bactrim. Keep right lower extremity elevated. JERAMIE pt/staff Problems: Consultation Date/Type/Reason Admit Date/Time Feb 16, 2017 at 14:20 Type of Consultation: ID Exam/Review of Systems Vital Signs Vitals Vital Signs Date Time Temp Pulse Resp B/P Pulse Ox O2 Delivery O2 Flow Rate FiO2 02/19/17 08:07 97.9 86 20 105/66 95 02/16/17 15:06 Room Air Intake and Output 02/18/17 02/18/17 02/19/17 15:00 23:00 07:00 Intake Total 250 ml 1310 ml 730 ml Output Total 350 ml Balance 250 ml 960 ml 730 ml Results Result Diagram: 02/18/17 0435 02/19/17 0427 Results 24 hrs Laboratory Tests Test 02/18/17 17:17 02/18/17 20:37 02/19/17 04:27 02/19/17 08:01 Bedside Glucose 195 169 184 Blood Urea Nitrogen 21 H Creatinine 0.75 Test 02/19/17 12:03 Bedside Glucose 199 Medications Medications Current Medications Ondansetron HCl (Zofran Inj) 4 mg Q6H PRN IV NAUSEA AND/OR VOMITING; Start at 15:30 Acetaminophen (Tylenol Tab) 650 mg Q6H PRN PO PAIN LEVEL 1-3 OR FEVER Last administered on 02/17/17 22:18; Admin Dose 650 MG; Start 02/16/17 at 15:30 Acetaminophen/ Hydrocodone Bitart ([place] (5/325)) 1 tab Q6H PRN PO MODERATE PAIN LEVEL 4-6; Start 02/16/17 at 15:30 Morphine Sulfate (morphine) 2 mg Q4H PRN IV SEVERE PAIN LEVEL 7-10; Start 02/16 at 15:30 Famotidine (Pepcid) 20 mg Q12 PO Last administered on 02/19/17 09:14; Admin Dose 20 MG; Start 02/16/17 at 21:00 Enoxaparin Sodium (Lovenox) 40 mg DAILY SC Last administered on 02/19/17 09:17 ; Admin Dose 40 MG; Start 02/17/17 at 09:00 Hydralazine HCl (Apresoline) 10 mg Q6H PRN IV SBP>160; Start 02/16/17 at 15:30 Miscellaneous Information 1 ea NOTE XX ; Start 02/16/17 at 16:00 Glucose (Glutose) 15 gm Q15M PRN PO DECREASED GLUCOSE; Start 02/16/17 at 16:00 Glucose (Glutose) 22.5 gm Q15M PRN PO DECREASED GLUCOSE; Start 02/16/17 at 16: 00 Dextrose (D50w Syringe) 25 ml Q15M PRN IV DECREASED GLUCOSE; Start 02/16/17 at 16:00 Dextrose (D50w Syringe) 50 ml Q15M PRN IV DECREASED GLUCOSE; Start 02/16/17 at 16:00 Glucagon (Glucagen) 1 mg Q15M PRN IM DECREASED GLUCOSE; Start 02/16/17 at 16:00 Glucose (Glutose) 15 gm Q15M PRN BUCCAL DECREASED GLUCOSE; Start 02/16/17 at 16 :00 Cholecalciferol (Vitamin D) 2,000 unit DAILY PO Last administered on 02/19/17 09:14; Admin Dose 2,000 UNIT; Start 02/17/17 at 09:00 Lisinopril (Zestril) 5 mg DAILY PO Last administered on 02/19/17 09:14; Admin Dose 5 MG; Start 02/17/17 at 13:00 Insulin Glargine (Lantus) 30 unit DAILY@20 SC Last administered on 02/18/17 20 :42; Admin Dose 30 UNIT; Start 02/18/17 at 20:00 Rifampin (Rifampin) 600 mg DAILY PO Last administered on 02/19/17 09:14; Admin Dose 600 MG; Start 02/19/17 at 09:00 Silver Sulfadiazine 1 applic 1 applic DAILY TOP Last administered on 02/19/17 12:03; Admin Dose 1 APPLIC; Start 02/19/17 at 11:00 Vancomycin HCl/ Sodium Chloride (Vancocin/NS) 250 ml @ 83.333 mls/ hr Q8H IVPB ; Start 02/19/17 at 14:00 Miscellaneous Information (*Rx Drug Level Order Reminder*) VANCOMYCIN TROUGH ON 01/24... ONCE ONCE XX ; Start 02/20/17 at 13:00; Stop 02/20/17 at 13:01 PAULINO SALEEM NP Feb 19, 2017 12:59
[2017-02-19] MEDS: metFORMIN 850 MG TAB PO SCH (17:37)
[2017-02-19 20:00] VITALS: BP 134/84; RESP 20
[2017-02-19] MEDS: INSULIN GLARGINE [LANtus] 3 ML PEN SC SCH (20:33)
[2017-02-19 21:58] VITALS: BP 134/84; RESP 20
[2017-02-20 07:40] VITALS: BP 119/72; RESP 18
[2017-02-20] MEDS: FAMOTIDINE 20 MG TAB PO SCH (08:28)
[2017-02-20] MEDS: metFORMIN 850 MG TAB PO SCH ×2 (08:28→17:49)
[2017-02-20] MEDS: RIFAMPIN 300 MG CAP PO SCH (08:28)
[2017-02-20] MEDS: CHOLECALCIFEROL 2,000 UNIT CAP PO SCH (08:28)
[2017-02-20] MEDS: ENOXAPARIN 40 MG/0.4 ML SYG SC SCH (08:29)
[2017-02-20] MEDS: LISINOPRIL 5 MG TAB PO SCH (08:29)
[2017-02-20] MEDS: INSULIN ASPART [NOVOLOG] 3 ML PEN SC SCH ×6 (08:30→17:49)
[2017-02-20] MEDS: SILVER SULFADIAZINE 1% 25 GM CR TOP SCH (08:32)
[2017-02-20] MEDS: VANCOMYCIN 1.25 GM in SOD CHLORIDE 0.9% 250 ML IVPB SCH ×2 (08:43→17:30)
--- NOTE | 2017-02-20 13:45 | CONS ---
Date/Time of Note Date/Time of Note DATE: 02/20/17 TIME: 13:44 Assessment/Plan Assessment/Plan Chief Complaint/Hosp Course SUBJECTIVE: No acute changes. The patient is alert, looks comfortable. No fevers. MICROBIOLOGY: Drainage from right lower extremity growing MRSA. DIAGNOSTICS: Ultrasound revealed no evidence of DVT. ANTIMICROBIALS: The patient is on: 1. Vancomycin. 2. Rifampin. PHYSICAL EXAMINATION: GENERAL: Obese, well-developed middle-aged man who is alert, in no distress. HEENT: Head atraumatic, normocephalic. Sclerae anicteric. NECK: Supple. CHEST: Rise symmetrical. Breath sounds clear. HEART: S1, S2. ABDOMEN: Soft. Bowel tones present. EXTREMITIES: Right lower extremity edema and erythema. ASSESSMENT: 1. Systemic inflammatory response syndrome 2 to right lower extremity cellulitis. 2. Obesity. 3. Diabetes. PLAN: The patient remains stable. Ok discharge on oral Bactrim for 2 weeks DW pt/staff Problems: Consultation Date/Type/Reason Admit Date/Time Feb 16, 2017 at 14:20 Type of Consultation: ID Exam/Review of Systems Vital Signs Vitals Vital Signs Date Time Temp Pulse Resp B/P Pulse Ox O2 Delivery O2 Flow Rate FiO2 02/20/17 07:40 97.5 83 18 119/72 96 02/16/17 15:06 Room Air Intake and Output 02/19/17 02/19/17 02/20/17 15:00 23:00 07:00 Intake Total 250 ml 730 ml 750 ml Balance 250 ml 730 ml 750 ml Results Result Diagram: 02/18/17 0435 02/19/17 0427 Results 24 hrs Laboratory Tests Test 02/19/17 17:37 02/19/17 20:28 02/20/17 08:21 02/20/17 12:31 Bedside Glucose 155 126 158 163 Medications Medications Current Medications Ondansetron HCl (Zofran Inj) 4 mg Q6H PRN IV NAUSEA AND/OR VOMITING; Start at 15:30 Acetaminophen (Tylenol Tab) 650 mg Q6H PRN PO PAIN LEVEL 1-3 OR FEVER Last administered on 02/17/17t 22:18; Admin Dose 650 MG; Start 02/16/17 at 15:30 Acetaminophen/ Hydrocodone Bitart ([place] (5/325)) 1 tab Q6H PRN PO MODERATE PAIN LEVEL 4-6; Start 02/16/17 at 15:30 Morphine Sulfate (morphine) 2 mg Q4H PRN IV SEVERE PAIN LEVEL 7-10; Start 02/16 at 15:30 Famotidine (Pepcid) 20 mg Q12 PO Last administered on 02/20/17 08:28; Admin Dose 20 MG; Start 02/16/17 at 21:00 Enoxaparin Sodium (Lovenox) 40 mg DAILY SC Last administered on 02/20/17 08:29 ; Admin Dose 40 MG; Start 02/17/17 at 09:00 Hydralazine HCl (Apresoline) 10 mg Q6H PRN IV SBP>160; Start 02/16/17 at 15:30 Miscellaneous Information 1 ea NOTE XX ; Start 02/16/17 at 16:00 Glucose (Glutose) 15 gm Q15M PRN PO DECREASED GLUCOSE; Start 02/16/17 at 16:00 Glucose (Glutose) 22.5 gm Q15M PRN PO DECREASED GLUCOSE; Start 02/16/17 at 16: 00 Dextrose (D50w Syringe) 25 ml Q15M PRN IV DECREASED GLUCOSE; Start 02/16/17 at 16:00 Dextrose (D50w Syringe) 50 ml Q15M PRN IV DECREASED GLUCOSE; Start 02/16/17 at 16:00 Glucagon (Glucagen) 1 mg Q15M PRN IM DECREASED GLUCOSE; Start 02/16/17 at 16:00 Glucose (Glutose) 15 gm Q15M PRN BUCCAL DECREASED GLUCOSE; Start 02/16/17 at 16 :00 Cholecalciferol (Vitamin D) 2,000 unit DAILY PO Last administered on 02/20/17 08:28; Admin Dose 2,000 UNIT; Start 02/17/17 at 09:00 Lisinopril (Zestril) 5 mg DAILY PO Last administered on 02/20/17 08:29; Admin Dose 5 MG; Start 02/17/17 at 13:00 Insulin Glargine (Lantus) 30 unit DAILY@20 SC Last administered on 02/19/17 20 :33; Admin Dose 30 UNIT; Start 02/18/17 at 20:00 Rifampin (Rifampin) 600 mg DAILY PO Last administered on 02/20/17 08:28; Admin Dose 600 MG; Start 02/19/17 at 09:00 Silver Sulfadiazine 1 applic 1 applic DAILY TOP Last administered on 02/20/17 08:32; Admin Dose 1 APPLIC; Start 02/19/17 at 11:00 Vancomycin HCl/ Sodium Chloride (Vancocin/NS) 250 ml @ 83.333 mls/ hr Q8H IVPB Last administered on 02/20/17 08:43; Admin Dose 83.333 MLS/HR; Start at 09:30 PAULINO SALEEM NP Feb 20, 2017 13:45
--- NOTE | 2017-02-20 14:13 | PDOCDIS ---
Discharge Instructions DIAGNOSIS Discharge Diagnosis Right lower extremity cellulitis. CONDITION Patient Condition: Stable HOME CARE INSTRUCTIONS: Special Diet: carb control FOLLOW UP/APPOINTMENTS Follow-up Plan Phu Warren MD Specialty: Internal Medicine Office Address: [address] [place], [place] [id number] Office OTHER ORDERS: Other Orders: 1. Take medications as per prescription. 2. Elevate the right lower extremity while resting. 3. Take a low-cholesterol, carb controlled diet. 4. Resume activities as tolerated. 5. Follow-up with your primary care physician in 7 days. If you do not have a primary care physician, please call Dr. Phu Warren's office. SCHOOL/WORK RELEASE May return to School/Work on: Feb 24, 2017 May return to School/Work with: No Restrictions SHIVA CHASE NP Feb 20, 2017 14:13
[2017-02-20] MEDS ORDERED: LANT3I SC (14:15)
[2017-02-20] MEDS ORDERED: CHOL20003 PO (14:15)
[2017-02-20] MEDS ORDERED: METF-480 PO (14:15)
[2017-02-20] MEDS ORDERED: NOVO3I SC (14:15)
[2017-02-20] MEDS ORDERED: LISI-313 PO (14:15)
--- NOTE | 2017-02-20 14:24 | DS ---
Date/Time of Note Date/Time of Note DATE: 02/20/17 TIME: 14:19 Discharge Summary Admission/Discharge Info Admit Date/Time Feb 16, 2017 at 14:20 Discharge Date/Time Discharge Diagnosis 1. Right lower extremity cellulitis with underlying abscess. 2. Type 2 diabetes mellitus. Newly diagnosed. Hemoglobin A1c 13.6. 3. Morbid obesity. 4. Vitamin D deficiency. Patient Condition: Stable Consults Sebastián Handy MD, infectious diseases. Procedures X-Ray Right Tibia and Fibula IMPRESSION: 1. Diffuse soft tissue swelling. 2. Otherwise unremarkable images of the right tibia and fibula. Right lower Extremity Venous Doppler Study IMPRESSION: 1. No evidence of deep vein thrombosis involving the right lower extremity. Hx of Present Illness This is a 46-year-old male who denies any past medical history but who is morbidly obese, who came to the emergency department with chief complaint of right lower extremity redness and edema along with pain. The patient verbalized that this started as a pimple-like lesion on 02/10/2017 when he tried to break it and there was some drainage coming out. Since then, this area has been becoming more and more enlarged with redness and edema. The patient tried fayc-whm-nijfcct antimicrobial cream and tfsm-[id number]-xztlmqg analgesics with minimal relief. The patient came to the emergency room today with significant right lower extremity edema and erythema. The patient denied any fevers or chills. The patient denied any prior similar episodes. In the emergency room, the patient was noticed to have a random blood glucose of 426. The patient had no leukocytosis. The patient had no febrile illness. The patient had an incision and drainage of the right lower extremity wound by the ER physician dairy and food laboratory assistant. The patient was treated with IV vancomycin and IV Zosyn in the emergency room along with IV fluids. Hospital Course The patient was admitted to inpatient setting. The patient was started on a sliding scale insulin along with the basal insulin and Lantus insulin. The patient was noticed to have a hemoglobin A1c of 13.6. The patient was evaluated by museum educator and was educated on insulin injection and dietary restrictions. The patient was later started on the Metformin and the dosing of metformin was increased. The patient tolerated metformin very well. The patient was also noticed to have significant vitamin D deficiency. Hence the patient was started on vitamin D supplements. The patient is morbidly obese with a BMI of 44.6 kg/m. The patient was seen by a registered dietitian. The patient did not have any significant dyslipidemia. Patient was started on WEI inhibitors for renal protection because of underlying diabetes. The patient had an incision and drainage of the right lower extremity abscess by the ER PA. The patient underwent a right lower extremity venous Doppler study that was negative for any DVT. The patient also underwent an x-ray of the right tibia and fibula that was negative for any involvement of the bone other than subcutaneous tissue swelling. The patient's right lower extremity wound culture showed MRSA. The patient was maintained on antibiotics as per infectious diseases. The patient's blood cultures remained negative. The patient's right lower extremity wound was evaluated by the wound care team and local wound care was done as per the instructions of the wound care team. The patient's right lower extremity edema and erythema has improved significantly with IV antibiotics. The patient's blood sugars are well controlled. The patient can be discharged home on oral antibiotics, to be followed up with outpatient primary care physician for further management of the right lower extremity cellulitis. The patient had a stable hospital course. The patient was cleared by consultants to be discharged home. Discharge Instructions 1. Take medications as per prescription. 2. Elevate the right lower extremity while resting. 3. Take a low-cholesterol, carb controlled diet. 4. Resume activities as tolerated. 5. Follow-up with your primary care physician in 7 days. If you do not have a primary care physician, please call Dr. Phu Warren's office. The patient verbalized understanding of his discharge instructions. The case and management of this patient was discussed with . Of note, the patient's medication reconciliation from home shows medications including insulin, amiodarone, Lopressor, etc. The patient has not been on any medications at home. It is unclear how these medications populated into the patient's discharge summary. Please disregard the home medications present in the discharge summary, for the patient was not on any medications prior to this hospitalization. Home Meds Active Scripts Cholecalciferol (Vitamin D3) (VITAMIN D-3) 2,000 Unit Capsule, 2000 UNIT PO DAILY for 30 Days, CAP Prov:SHIVA CHASE NP 02/20/17 Metformin* (Glucophage*) 850 Mg Tablet, 850 MG PO BID WITH MEALS for 30 Days, TAB Prov:SHIVA CHASE NP 02/20/17 Insulin Glargine* (Lantus*) 100 Unit/Ml Soln, 30 UNIT SC DAILY@20 for 30 Days Prov:SHIVA CHASE MANUSCRIPT READER 02/20/17 Insulin Aspart* (Novolog Insulin Pen*) 100 Unit/Ml Soln, 10 UNIT SC WITH MEALS for 30 Days Prov:SHIVA CHASE MANUSCRIPT READER 02/20/17 Lisinopril* (Lisinopril*) 5 Mg Tablet, 5 MG PO DAILY for 30 Days, TAB Prov:SHIVA CHASE MANUSCRIPT READER 02/20/17 Discontinued Reported Medications Lactobacillus Acidophilus (ACIDOPHILUS PROBIOTIC) 1 Mg Tablet, 1 MG PO DAILY, TAB 02/17/17 Aspirin (Aspirin) 81 Mg Chew, 81 MG PO DAILY, TAB.CHEW 02/17/17 Ascorbic Acid (Vitamin C) 500 Mg Tab, 500 MG PO DAILY, TAB 02/17/17 Sodium Chloride (Sodium Chloride) 1,000 Mg Tablet.raquel, 1000 MG MC TID, TAB 02/17/17 Pantoprazole (Protonix) 40 Mg Tabec, 40 MG PO DAILY, TAB 02/17/17 Metoprolol Tartrate* (Lopressor*) 25 Mg Tablet, 12.5 MG PO BID, #60 TAB 02/17/17 Insulin Glargine* (Lantus*) 100 Unit/Ml Soln, 16 UNIT SC QHS, #1 VIAL 02/17/17 Insulin Aspart* (Novolog Insulin Pen*) 100 Unit/Ml Soln, 20 UNIT SC WITH DINNER , EA 02/17/17 Insulin Aspart* (Novolog Insulin Pen*) 100 Unit/Ml Soln, 20 UNIT SC WITH LUNCH, EA 02/17/17 Insulin Aspart* (Novolog Insulin Pen*) 100 Unit/Ml Soln, 15 UNIT SC WITH BREAKFAST, EA 02/17/17 Hydralazine Hcl* (Hydralazine Hcl*) 25 Mg Tab, 25 MG PO BID, #90 TAB 02/17/17 Amiodarone Hcl* (Amiodarone Hcl*) 200 Mg Tablet, 200 MG PO DAILY, #30 TAB 02/17/17 Follow-up Plan Follow-up with Dr. Phu Warren in 1 week. Primary Care Provider Care Physician No Primary Time spent on discharge: > 30 minutes Pending Labs Name: MARY WEISS Age/Sex: 46/M Attend Dr: EVELIA CONNORS Acct: [id number] MR# : [id number] : 1970 Location: [facility] 2244-A Admit: 02/16/17 Specimen: [id number] Status: Complete Tom: 02/16/17-1149 Rcvd: 02/16-1208 Source: ABSCESS Sp Descrip: Procedure Result Microbiology GRAM STAIN Final POLYMORPH. LEUKOCYTE 2+ GRAM POS COCCI IN CLUSTER 2+ GRAM POS COCCI IN PAIRS 2+ GRAM POS COCCI IN CHAIN 2+ WOUND CULTURE Final Organism 1 METHICILLIN RESISTANT S.AUREUS QUANTITY 2+ . MULTI DRUG RESISTANT ORGANISM PHONED TO GABBI DE LA GARZA BRANDI, CHRISTIANE AND A COPY TO AT [id number] 02/18/17 BY AD. SILVANA SchraderIBreannaCBreanna RX --------- --- CEFAZOLIN R CIPROFLOXACIN >=8 R CLINDAMYCIN <=0.25 S DOXYCYCLINE S ERYTHROMYCIN >=8 R LEVOFLOXACIN 4 R OXACILLIN >=4 R PENICILLIN-G >=0.5 R RIFAMPIN <=0.5 S VANCOMYCIN <=0.5 S TRIMETHOPRIM/SULFAMETHOXAZOLE <=10 S ................................................................................ ............ Flags: Critical Hi = *H Critical Lo = *L Microbiology Abnormal = * Abnormal Hi = H Abnormal Lo = L Blood Bank Abnormal = * Susceptability Flags: S = Sensitive R = Resistant I = Intermediate END OF REPORT Laboratory Tests Test 02/19/17 17:37 02/19/17 20:28 02/20/17 08:21 02/20/17 12:31 Bedside Glucose 155mg/dL (70-220) 126mg/dL (70-220) 158mg/dL (70-220) 163mg/dL (70-220) SHIVA CHASE NP Feb 20, 2017 14:24
== END 2017-02-20 20:33 | disposition home or self-care (01) | DRG 638 ==
LOC: FTE 08:47 → PP2 14:20
PROVIDERS: ADMIT Hospitalist; ATTEND Hospitalist
DX: E11.628 Type 2 diabetes mellitus with other skin complications (principal); L02.415 Cutaneous abscess of right lower limb; R65.10 Systemic inflammatory response syndrome (SIRS) of non-infectious origin without acute organ dysfunction; L03.115 Cellulitis of right lower limb; E55.9 Vitamin D deficiency, unspecified; Z68.41 Body mass index [BMI] 40.0-44.9, adult; E11.65 Type 2 diabetes mellitus with hyperglycemia; E66.01 Morbid (severe) obesity due to excess calories; R60.0 Localized edema
CPT/HCPCS: 73590; 80053; 80061; 80202; 80307; 81003; 82306; 82565; 82652; 82962; 83036; 83735; 84100; 84439; 84443; 84520; 85025; 87040; 87070; 93971; 96372; 96374; 96375; J1650; J1815; J1956; J2543; J3370; J7030; J7050

== ENCOUNTER 2017-03-03 15:47 | Outpatient (CLI) | payer MEDICAID ==
[~2017-03-03] VITALS: Ht 172.7 cm; Wt 139.5 kg
[2017-03-03 15:02] VITALS: BP 134/76; PULSE 98; RESP 18; Ht 172.7 cm; Wt 139.5 kg
[~2017-03-03 15:47] MED LIST: CHOL200073 PO; LANT3I SC; LISI-313 PO; METF-480 PO; NOVO3I SC
--- NOTE | 2017-03-03 16:33 | PN ---
Date/Time of Note Date/Time of Note DATE: 03/03/17 TIME: 16:28 Outpatient Progress Note Chief Complaint Cellulitis/diabetes/obesity/vitamin D deficiency/hypertension/hyperlipidemia HPI Cellulitis/patient has acute onset of cellulitis, right leg, patient on antibiotic, no fever chill, Diabetes/no polydipsia polyuria hypoglycemia, on medication, according to patient blood sugar is controlled at present, Obesity patient morbidly obese, no history of hypothyroidism, Vitamin D deficiency, patient has vitamin D deficiency, on medication, no side effect of medication Hypertension/no headache or dizziness, no local focal weakness, Hyperlipidemia/no xanthoma, on medication, no side effect of medication,, Review of Systems Patient morbidly obese, const: No Fever, no chills, no Wt. loss, no Fatigue, normal appetite, no diaphoresis. Eyes: No pain, no discharge, no redness, no visual change, no foreign body. ENT: No pain, no bleeding, no congestion, no sore throat, no dysphagia, no discharge or rhinitis. Lymph: No adenopathy, no tender nodes, no lymphedema. Resp: No SOB, no cough, no sputum, no wheezing, no chest pain. CV: No chest pain, no palpitaions, no ROSAS, no PND, no edema. GI: Normal appetite, no pain, no nausea, no vomiting, no diarrhea, no blood, no constipation. : No frequency, no urgency, no dysuria, no hematuria, no flank pain, no discharge, no bleeding. Musc: No back pain, no neck pain, no knee pain, no restricted ROM. Skin: No rash, patient has skin lesions and ulcer on the right leg, no redness of bleeding or discharge, healing,, no erythema, no laceration, no bruising, no pruritus. Neuro: No ALSTON, no dizziness, no syncope, no seizure, no focal-weakness. Endo: No polyuria, no polydypsia, no dry-skin, no temp-intolerance. Psych: No hallucinations, no depression, no anxiety, no suicidal ideation. Ext: No edema, no pain, right leg ulcer, no weakness. Physical Exam Vital Signs Date Time Temp Pulse Resp B/P Pulse Ox O2 Delivery O2 Flow Rate FiO2 03/03/17 15:02 97.8 98 18 134/76 94 Room Air General Appearance: A 46 year-old male who appears well-developed, well- nourished, in no acute distress. Patient morbidly obese, HEENT: Head normocephalic, atraumatic. Pupils equal, round, reactive to light and accommodate. Sclerae are no jaundice. Nasal turbinates pink without erythema or nasal discharge. Mucous membranes pink and moist without lesions. Oropharynx clear without any exudate or discharge. NECK: Supple. Trachea midline, No thyromegaly, No cervical lymphadenopathy, No mass, No carotid bruits, No JVD, Carotid pulses 2+ bilaterally. PULMONARY: Clear to auscultaion bilaterally, No retractions, Chest expansion symmetric bilaterally, no rales, no ronchi, no dulness on percussion. CARDIAC: Normal SI and S2, Regular rate and rythm, no murmur, gallop, or rub. GASTROINTESTINAL: Abdomen is soft, non-tender, Non Rigid, No distention, Positive bowel sounds x4 quadrants, Liver normal. SKIN: Warm, dry, no rash, no bruise, no echmosis. Right leg ulcer, no redness, no bleeding or discharge, EXTREMITIES: Bilateral lower extremities normal, no edema, no phlabitus, pulse palpable, no contracture. Right leg ulcer, no redness bleeding discharge, MUSCULOSKELETAL: Spine Normal, Non-tender, Normal range of motion, No swelling, no deformity, no clubbing, or cyanosis, the patient has no edema to bilateral lower extremities, dorsalis pedis pulses palpable bilaterally. NEUROLOGIC: The patient is awake, alert, oriented, responding to yes/no questions appropriately, moving all extremities, cranial nerve intact, normal strenght, normal power, normal coordination, normal gait. Allergies Coded Allergies: No Known Allergy (Unverified , 02/16/17) [facility] Diabetes/hypertension/hyperlipidemia/obesity Social Hx No smoking no drinking, Family Hx Noncontributory Assessment/Plan Impression Cellulitis/diabetes/obesity/vitamin D deficiency/hypertension/hyperlipidemia Plan Patient education done about diabetes hypertension hyperlipidemia etc., risk explained to the patient, Patient advised to control the weight control the blood sugar control the diet control the blood pressure, risk of MT, CVA, renal failure/, gangrene, blindness , etc. etc. were explained to the patient, Patient has still antibiotic, continue antibiotic at present, Patient to follow with the primary care physician, and encouraged to follow with the primary care, Jodi the wound dressing every day, If patient has any fever or bleeding or discharge to let us know and will see the patient, Medications Home Meds Active Scripts Cholecalciferol (Vitamin D3) (VITAMIN D-3) 2,000 Unit Capsule, 2000 UNIT PO DAILY for 30 Days, CAP Prov:SHIVA CHASE NP 02/20/17 Metformin* (Glucophage*) 850 Mg Tablet, 850 MG PO BID WITH MEALS for 30 Days, TAB Prov:SHIVA CHASE NP 02/20/17 Insulin Glargine* (Lantus*) 100 Unit/Ml Soln, 30 UNIT SC DAILY@20 for 30 Days Prov:SHIVA CHASE NP 02/20/17 Insulin Aspart* (Novolog Insulin Pen*) 100 Unit/Ml Soln, 10 UNIT SC WITH MEALS for 30 Days Prov:SHIVA CHASE NP 02/20/17 Lisinopril* (Lisinopril*) 5 Mg Tablet, 5 MG PO DAILY for 30 Days, TAB Prov:SHIVA CHASE NP 02/20/17 CRYSTAL ARGUELLO MD Mar 03, 2017 16:33
== END 2017-03-03 17:00 | disposition home or self-care (01) ==
LOC: DCC 15:47
PROVIDERS: ATTEND Internal Medicine
DX: L03.115 Cellulitis of right lower limb (principal); E11.9 Type 2 diabetes mellitus without complications; I10 Essential (primary) hypertension; E78.5 Hyperlipidemia, unspecified; E55.9 Vitamin D deficiency, unspecified
CPT/HCPCS: G0463